=== PATIENT | male | born 1990 | race Caucasian/White ===

== ENCOUNTER 2017-01-15 14:15 | Emergency (ER) | payer BC, MEDICAID ==
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
[2017-01-15 15:37] VITALS: BP 114/71
--- NOTE | 2017-01-16 14:51 | CR ---
EXAM DATE: 01/15/17 PATIENT'S AGE: 26 Patient: SONJA DE SOUZA Facility: [place], [place] Site . Site : 1990 Study: XRay Facial [id number]/6/2017 2:42:35 PM Ordering Physician: Doctor Kuo Final Report: HISTORY: Trauma. Right eye swelling. Technique: Three views of the facial bones. Comparison: None. Findings: Soft tissue swelling overlies the right orbit. The orbital floor is intact. Superior orbital rim is unremarkable. Zygomatic arch appears to be intact. On the lateral view, fracture of the distal tip of the nasal arch is seen. No air-fluid level is seen in the visible paranasal sinuses. Impression: 1. Nasal bone fracture, age indeterminate. 2. No obvious orbital fracture. If necessary clinically, CT is recommended. Dictated by Juan Hansen MD @ Jan 15 2017 2:54PM (Electronic Signature) Report Signed by Proxy. YOSEF
== END 2017-01-15 15:34 | disposition home or self-care (01) ==
LOC: MW.ED 14:15
DX: S00.33XA Contusion of nose, initial encounter (principal); F17.210 Nicotine dependence, cigarettes, uncomplicated; Z98.890 Other specified postprocedural states; W22.8XXA Striking against or struck by other objects, initial encounter
CPT/HCPCS: 70150; 70150-26; 99283; 99284